=== PATIENT | female | born 1950 | race Asian ===

== ENCOUNTER → 2020-11-02 08:49 | Outpatient (CLI) | payer MEDICARE, OTHER, SELFPAY ==
--- NOTE | 2020-11-02 | DI.MRI.S_ITS ---
PROCEDURE: MRFOOT LT WO CON INDICATIONS: Localized swelling, mass and lump, unspecified TECHNIQUE: Noncontrast sagittal T1 spin echo and T2 fast spin echo with fat saturation, long-axis T1 spin echo and T2 fast spin echo with fat saturation, short-axis T1 spin echo and T2 fast spin echo with fat saturation through the forefoot. COMPARISON: None. FINDINGS: Image quality: Excellent. Bones and joints: Surface skin marker is placed over plantar aspect of 4th toe at the level of 4th PIP joint. No bone marrow contusions or metatarsal stress fractures. The sesamoid bones appear in expected positions, without internal edema. No suspicious intraosseous lesion. Mild osteoarthritic changes are seen throughout MCP joints and interphalangeal joints. Soft tissues: The visualized plantar foot muscles demonstrate normal signal and bulk. Visualized flexor and extensor tendons appear intact, without tenosynovitis. The distal insertions of the peroneus brevis and longus tendons appear intact. The principal Lisfranc ligament appears intact. No soft tissue ganglion cysts or bursal fluid collections. Sagittal images demonstrate no evidence for plantar plate tears. IMPRESSION: 1. No marrow edema. No evidence of fracture or dislocation. Mild forefoot joint osteoarthritis. No suspicious intraosseous lesion. 2. No gross forefoot soft tissue mass or fluid collection. Forefoot tendons and ligaments are grossly intact. No finding to explain patient's symptoms. Dictated by: Hitesh Norht M.D. on 11/02/2020 at 9:22 Approved by: Htiesh North M.D. on 11/02/2020 at 10:48
== END ==
PROVIDERS: PCP Internal Medicine; Referring Provider Internal Medicine; Visit Provider Podiatrist
DX: R22.42 Localized swelling, mass and lump, left lower limb (principal); M79.672 Pain in left foot; M19.072 Primary osteoarthritis, left ankle and foot
CPT/HCPCS: 73718